=== PATIENT | female | born 1950 | race Caucasian/White ===

== ENCOUNTER 2016-11-07 13:20 | Inpatient (IN) | payer BC ==
[~2016-11-07 13:20] MED LIST: GLYCOPYRROLATE INJ 0.4 MG/2 ML VIAL ONE; ROCURONIUM BROMIDE INJ 50 MG/5 ML VIAL IV ONE; SUCCINYLCHOLINE CHLORIDE INJ 200 MG/10 ML VIAL ONE
[2016-11-07] MEDS ORDERED: ONDANSETRON HCL INJ/PF 4 MG/2 ML SDV IV ONE (14:03)
[2016-11-07] MEDS ORDERED: NORMAL SALINE 1000 ML 1,000 ML IV PRN ×2 (14:03→15:56)
[2016-11-07] MEDS ORDERED: MORPHINE SULFATE 10 MG/ML INJ IV ONE (14:04)
--- NOTE | 2016-11-07 14:06 | ER Document Report ---
ED Medical Screen (RME) - General Chief Complaint: Abdominal Pain Stated Complaint: ABDOMINAL PAIN Time Seen by Provider: 11/07/16 14:03 Mode of Arrival: Ambulatory Information source: Patient, [facility] Records TRAVEL OUTSIDE OF THE [place] IN LAST 30 DAYS: No - HPI Onset: Other - 4 days Onset/Duration: Gradual, Constant Quality of pain: Dull Associated Symptoms: Other - Decreased appetite Exacerbated by: Denies Similar symptoms previously: No Recently seen / treated by doctor: No - Related Data Smoking: Non-smoker Allergies/Adverse Reactions: meperidine [From Demerol] Allergy (Verified 11/07/16 13:46) Past Medical History - General Information source: Patient, [facility] Records - Social History Chew tobacco use (# tins/day): No Frequency of alcohol use: None Drug Abuse: None - Past Medical History Cardiac Medical History: Reports: Hx Hypertension Renal/ Medical History: Denies: Hx Peritoneal Dialysis Psychiatric Medical History: Reports: Hx Bipolar Disorder, Hx Depression Past Surgical History: Reports: Hx Cholecystectomy Review of Systems - Review of Systems Gastrointestinal: Abdominal pain -: Yes All other systems reviewed and negative Physical Exam - Vital signs Vitals: Temp Pulse Resp BP Pulse Ox 97.5 F 48 L 20 126/51 H 98 11/07/16 13:34 11/07/16 13:34 11/07/16 13:34 11/07/16 13:34 11/07/16 13:34 Interpretation: Normal - General General appearance: Appears well, Alert - HEENT Head: Normocephalic Mouth/Lips: Normal Pharynx: Normal Neck: Normal - Respiratory Respiratory status: No respiratory distress Chest status: Nontender Breath sounds: Normal Chest palpation: Normal - Cardiovascular Rhythm: Regular Heart sounds: Normal auscultation Murmur: No - Abdominal Inspection: Normal Distension: No distension Bowel sounds: Normal Tenderness: Tender - Right lower quadrant/right flank - Extremities General upper extremity: Normal inspection, Nontender, Normal color, Normal ROM , Normal temperature General lower extremity: Normal inspection, Nontender, Normal color, Normal ROM , Normal temperature, Normal weight bearing. No: Ivanna's sign - Neurological Neuro grossly intact: Yes Cognition: Normal Orientation: AAOx4 Yaima Coma Scale Eye Opening: Spontaneous [place] Coma Scale Verbal: Oriented [place] Coma Scale Motor: Obeys Commands Yaima Coma Scale Total: 15 Speech: Normal Motor strength normal: LUE, RUE, LLE, RLE Sensory: Normal - Skin Skin Temperature: Warm Skin Moisture: Dry Skin Color: Normal Course - Re-evaluation Re-evalutation: 11/07/16 15:49 CT consistent with acute appendicitis. Will contact surgery for admission. 11/07/16 15:[address] Shanks general surgery. He is aware of patient. I also have discussed workup with patient and she is aware that she has acute appendicitis and will need surgery. - Vital Signs Vital signs: Temp Pulse Resp BP Pulse Ox 97.5 F 48 L 20 126/51 H 98 11/07/16 13:34 11/07/16 13:34 11/07/16 13:34 11/07/16 13:34 11/07/16 13:34 - Laboratory Result Diagrams: 11/07/16 14:45 11/07/16 14:45 Laboratory results interpreted by me: 11/07/16 11/07/16 11/07/16 14:05 14:45 14:45 WBC 13.5 H Absolute Neutrophils 8.5 H Absolute Monocytes 1.7 H Sodium 134.9 L Chloride 91 L BUN 29 H Creatinine 1.97 H Est GFR ( Amer) 31 L Est GFR (Non-Af Amer) 26 L Direct Bilirubin 0.5 H Alkaline Phosphatase 138 H Urine Protein 30 H Urine Ketones TRACE H Urine Bilirubin SMALL H Urine Urobilinogen 2.0 H Ur Leukocyte Esterase LARGE H - Diagnostic Test Radiology reviewed: Reports reviewed Radiology results interpreted by me: 11/07/16 15:49 Per radiology: Right lower quadrant inflammatory changes consistent with acute appendicitis. - Transfer of Care Notes: 11/07/16 14:06 Patient will be evaluated by ED provider in the treatment area Doctor's Discharge - Discharge Clinical Impression: Acute appendicitis Condition: Fair Disposition: ADMITTED OBSERVATION
[2016-11-07 14:50] LABS: APPEARANCE,URINE CLOUDY; BILIRUBIN,URINE SMALL (NEGATIVE); GLUCOSE, URINE NEGATIVE (NEGATIVE); KETONES,URINE TRACE mg/dL (NEGATIVE); LEUKOCYTE ESTERASE,URINE LARGE (NEGATIVE); NITRITE,URINE NEGATIVE (NEGATIVE); PROTEIN,URINE 30 mg/dL (NEGATIVE); URINE SPECIFIC GRAVITY 1.025
[2016-11-07 14:53] LABS: ABSOLUTE BASOPHILS # (AUTO) 0.1 10^3/uL (0.0-0.2); ABSOLUTE EOSINOPHILS # (AUTO) 0.3 10^3/uL (0.0-0.6); ABSOLUTE LYMPHOCYTES (AUTO) 2.8 10^3/uL (0.5-4.7); ABSOLUTE MONOCYTES (AUTO) 1.7 10^3/uL (0.1-1.4); ABSOLUTE NEUT (AUTO) 8.5 10^3/uL (1.7-8.2); BASOPHILS % (AUTO) 0.4 % (0-2); EOSINOPHILS % (AUTO) 2.4 % (0-6); HEMATOCRIT 38.3 % (36.0-47.0); HEMOGLOBIN 12.8 g/dL (12.0-15.5); HGB HCT DIFFERENCE 0.1; LYMPHOCYTES % (AUTO) 20.7 % (13-45); MEAN CORPUSCULAR HEMOGLOBIN 31.1 pg (27.0-33.4); MEAN CORPUSCULAR HGB CONC 33.5 g/dL (32.0-36.0); MEAN CORPUSCULAR VOLUME 93 fl (80-97); MONOCYTES % (AUTO) 12.9 % (3-13); RED BLOOD COUNT 4.12 10^6/uL (3.72-5.28); SEGMENTED NEUTROPHILS % (AUTO) 63.6 % (42-78); WHITE BLOOD COUNT 13.5 10^3/uL (4.0-10.5)
[2016-11-07 15:11] LABS: ALANINE AMINOTRANSFERASE 25 U/L (9-52); ALBUMIN 3.7 g/dL (3.5-5.0); ALKALINE PHOSPHATASE 138 U/L (38-126); ANION GAP 14 (5-19); ASPARTATE AMINO TRANSFERASE 18 U/L (14-36); BILIRUBIN,DIRECT 0.5 mg/dL (0.0-0.4); BILIRUBIN,TOTAL 0.8 mg/dL (0.2-1.3); BLOOD UREA NITROGEN 29 mg/dL (7-20); CALCIUM 9.8 mg/dL (8.4-10.2); CARBON DIOXIDE 30 mmol/L (22-30); CHLORIDE 91 mmol/L (98-107); CREATININE RESULT 1.97 mg/dL (0.52-1.25); GLUCOSE 87 mg/dL (75-110); POTASSIUM 3.9 mmol/L (3.6-5.0); SODIUM 134.9 mmol/L (137-145); TOTAL PROTEIN 7.3 g/dL (6.3-8.2)
--- NOTE | 2016-11-07 15:15 | RADIOLOGY REPORT (SQ) ---
EXAM DESCRIPTION: CT ABD/PELVIS NO ORAL OR IV COMPLETED DATE/TIME: 11/07/2016 2:59 pm REASON FOR STUDY: kidney stone COMPARISON: None. TECHNIQUE: CT scan of the abdomen and pelvis performed without intravenous or oral contrast. Images reviewed with lung, soft tissue, and bone windows. Reconstructed coronal and sagittal MPR images revi ewed. All images stored on PACS. All CT scanners at this facility use dose modulation, iterative reconstruction, and/or weight based d osing when appropriate to reduce radiation dose to as low as reasonably achievable (ALARA). [facility]: Dose Right [facility]: CareDose [facility]: Dose Right [facility]: Teradose 4D [facility]: Smart Zuu Onlnine RADIATION DOSE: Up-to-date CT equipment and radiation dose reduction techniques were employed. CTDIv ol: 9.8 mGy. DLP: 524 mGy-cm.mGy. LIMITATIONS: None. FINDINGS: LOWER CHEST: No significant findings. No nodules or infiltrates. NON-CONTRASTED LIVER, SPLEEN, ADRENALS: Evaluation limited by lack of IV contrast. No identified sign ificant masses. PANCREAS: No masses. No peripancreatic inflammatory changes. GALLBLADDER: Surgically absent. RIGHT KIDNEY AND URETER: No suspicious masses. Assessment limited by lack of IV contrast. No signif icant calcifications. No hydronephrosis or hydroureter. LEFT KIDNEY AND URETER: No suspicious masses. Assessment limited by lack of IV contrast. No signifi cant calcifications. No hydronephrosis or hydroureter. AORTA AND RETROPERITONEUM: No aneurysm. No retroperitoneal masses or adenopathy. BOWEL AND PERITONEAL CAVITY: No obvious masses or inflammatory changes. No free fluid. APPENDIX: Poorly visualized. Prominent inflammatory change in the right lower quadrant at the tip of the cecum. No discrete focal fluid collection. There are a few prominent lymph nodes in the right lower quadrant. PELVIS, BLADDER, AND ABDOMINAL WALL:Calcified mass arising from the uterus consistent with a fibroid. No free fluid. Bladder normal. BONES: No significant findings. OTHER: No other significant finding. IMPRESSION: 1. PROMINENT INFLAMMATORY CHANGES IN THE RIGHT LOWER QUADRANT DESCRIBED. VERY DIFFICULT TO VISUAL IZE THE APPENDIX. FINDINGS ARE HIGHLY SUSPICIOUS FOR ACUTE APPENDICITIS. NO FOCAL DRAINABLE ABSCESS AT THIS TIME. 2. CALCIFIED UTERINE FIBROID. NO OTHER SIGNIFICANT OR ACUTE PROCESS IN THE ABDOMEN OR PELVIS. TECHNICAL DOCUMENTATION: JOB ID: [id number] Quality ID # [id number]: Final reports with documentation of one or more dose reduction techniques (e.g., Au tomated exposure control, adjustment of the mA and/or kV according to patient size, use of iterative reconstruction technique) 2010 [employer]- All Rights Reserved
[2016-11-07] MEDS ORDERED: AMPICILLIN SOD/SULBACTAM 3 GM VIAL IV ONE (15:55)
[2016-11-07] MEDS ORDERED: FENTANYL CITRATE INJ/PF 100 MCG/2 ML AMPUL ONE (17:29)
[2016-11-07] MEDS ORDERED: MIDAZOLAM 2 MG/2 ML INJ ONE (17:29)
[2016-11-07] MEDS ORDERED: DEXAMETHASONE SOD PHOSPHATE INJ 4 MG/1 ML VIAL ONE (17:29)
[2016-11-07] MEDS ORDERED: ONDANSETRON HCL INJ/PF 4 MG/2 ML SDV ONE (17:29)
--- NOTE | 2016-11-07 17:29 | PDOC H&P ---
History of Present Illness Admission Date/PCP: 11/07/16 16:07 Patient complains of: 4 day history of right lower quadrant pain, with associated anorexia. There is no history of nausea, vomiting, fever, chills, or change in bowel habits. There is no history of any urinary symptoms. On exam in the emergency room, patient was found to have mild right lower quadrant tenderness, and on CT scan there is findings suggestive of early appendicitis. Thus, surgical consultation is requested. History of Present Illness: DONNA FLORES is a 66 year old female Past Medical History Cardiac Medical History: Reports: Hypertension Psychiatric Medical History: Reports: Bipolar Disorder, Depression Past Surgical History Past Surgical History: Reports: Cholecystectomy Social History Smoking Status: Never Smoker Family History Parental Family History Reviewed: No Children Family History Reviewed: No Sibling(s) Family History Reviewed.: No Medication/Allergy Home Medications: Alprazolam [Xanax] 1 mg PO Q12HP PRN 11/07/16 Clonidine HCl [Catapres 0.2 mg Tablet] 0.2 mg PO Q12 11/07/16 Divalproex Sodium [Depakote] 500 mg PO Q12 11/07/16 Duloxetine HCl [Cymbalta] 60 mg PO DAILY 11/07/16 Metoprolol Tartrate [Lopressor 50 mg Tablet] 50 mg PO Q12 11/07/16 Triamterene/Hydrochlorothiazid [Triamterene-Hctz 37.5-25 mg Tb] 1 tab PO DAILY 11/07/16 Allergies/Adverse Reactions: meperidine [From Demerol] Allergy (Verified 11/07/16 13:46) Physical Exam Vital Signs: Temp Pulse Resp BP Pulse Ox 97.6 F 56 L 16 106/89 H 96 11/07/16 16:41 11/07/16 16:41 11/07/16 16:41 11/07/16 16:41 11/07/16 16:41 General appearance: PRESENT: no acute distress, cooperative, obese, well- developed, well-nourished Head exam: PRESENT: atraumatic, normocephalic Eye exam: PRESENT: conjunctiva pink, conjunctiva pale Mouth exam: PRESENT: moist, neck supple, tongue midline Respiratory exam: PRESENT: clear to auscultation leonardo, unlabored Cardiovascular exam: PRESENT: RRR GI/Abdominal exam: PRESENT: normal bowel sounds, soft, tenderness - Mild tenderness in right lower quadrant.. ABSENT: distended, guarding, organolmegaly , rebound Rectal exam: PRESENT: deferred Neurological exam: PRESENT: alert Results Impressions: Abdomen/Pelvis CT 11/07/16 14:03 IMPRESSION: 1. PROMINENT INFLAMMATORY CHANGES IN THE RIGHT LOWER QUADRANT DESCRIBED. VERY DIFFICULT TO VISUALIZE THE APPENDIX. FINDINGS ARE HIGHLY SUSPICIOUS FOR ACUTE APPENDICITIS. NO FOCAL DRAINABLE ABSCESS AT THIS TIME. 2. CALCIFIED UTERINE FIBROID. NO OTHER SIGNIFICANT OR ACUTE PROCESS IN THE ABDOMEN OR PELVIS. Assessment & Plan - Plan Summary Plan Summary: Patient will be taken to the operating room immediately, for laparoscopic appendectomy.
[2016-11-07] MEDS ORDERED: PROPOFOL INJ 200 MG/20 ML VIAL IV ONE (17:30)
[2016-11-07] MEDS ORDERED: MORPHINE SULFATE 10 MG/ML INJ ONE (17:30)
[2016-11-07] MEDS ORDERED: BUPIVACAINE HCL 0.5 % INJ/PF 30 ML SDV ONE (17:31)
[2016-11-07] MEDS ORDERED: ONDANSETRON HCL INJ/PF 4 MG/2 ML SDV IV PRN (19:12)
[2016-11-07] MEDS ORDERED: PROMETHAZINE HCL INJ 25 MG/1 ML VIAL IV PRN ×2 (19:12)
[2016-11-07] MEDS ORDERED: FENTANYL CITRATE INJ/PF 100 MCG/2 ML AMPUL IV PRN ×3 (19:12)
[2016-11-07] MEDS ORDERED: DIPHENHYDRAMINE HCL 50 MG/ML VIAL IV PRN (19:12)
[2016-11-07] MEDS ORDERED: MORPHINE SULFATE 10 MG/ML INJ IV PRN (19:12)
--- NOTE | 2016-11-07 19:13 | EKG REPORT ---
SEVERITY:- ABNORMAL ECG - SINUS RHYTHM LEFT VENTRICULAR HYPERTROPHY : Confirmed by: Zackary Mayes MD 07-Nov-2016 19:13:09
[2016-11-07] MEDS ORDERED: HYDROMORPHONE HCL INJ/PF 2 MG/ML AMPULE IV PRN (21:07)
--- NOTE | 2016-11-07 21:32 | Operative Report ---
Operative Report DATE OF SURGERY: 11/07/16 PREOPERATIVE DIAGNOSIS: Acute appendicitis POSTOPERATIVE DIAGNOSIS: Perforated acute appendicitis with phlegmon formation. OPERATION: Attempted laparoscopic appendectomy, with open conversion and resection of distal ileum and cecum, with ilio-ascending colon anastomosis. SURGEON: RUBEN SINGLETON ASSISTANT QUALITY MANAGER: Carmita ANESTHESIA: GA TISSUE REMOVED OR ALTERED: Distal ileum, appendix, and cecal phlegmon COMPLICATIONS: None ESTIMATED BLOOD LOSS: 50cc INTRAOPERATIVE FINDINGS: Perforated appendix with phlegmon formation, involving the cecum, appendix, and ascending colon. PROCEDURE: The patient was brought to the operating suite and placed in the supine position on the operating table. Monitoring device was attached, IV sedation was administered, followed by the induction of general endotracheal anesthesia. The patient's abdomen was then prepped and draped in usual sterile manner and timeout was achieved. After all concurred, Marcaine was injected just below the umbilicus. A curvilinear incision was made just below the umbilicus and carried through skin and subcutaneous tissue down to the linea alba.. 2-0 Vicryl stay sutures were then placed in the linea alba, and an incision was made between the 2 stay sutures. We then grasped the peritoneum and an incision was made between the 2 clamps grasping the peritoneum. We entered the abdominal cavity, and performed digital exploration to assure that there were no viscera adherent to the anterior abdominal wall. We then inserted our Trocar and Secured It with a 2-0 Vicryl Stay Sutures. The Abdomen Was Insufflated with CO2 and Then the Laparoscopic Camera and Light Source Were Inserted into the Abdominal Cavity. We Noted the Phlegmon in the Pelvis, and decided to abandon the laparoscopic approach, and proceeded to open conversion. We then removed all trochars from the abdominal wall and decompressed the abdomen. A transverse incision was made at McBurney's point, and carried through skin and subcutaneous tissue down to the external oblique fascia. We then divided the internal oblique fascia, the transversalis fascia and muscle, the peritoneum, and the abdominal cavity was entered. We noted the phlegmon around the cecum and appendix. We mobilized the distal ileum and the right colon so that the phlegmon could be somewhat eviscerated. After determining that the appendix could not be fully visualized, given the extent of the phlegmon, we decided to do a resection of the distal ileum and cecum. We made an opening in the mesenteric border of the ileum and the ascending colon respectively, and divided each with a GI We then divided the mesentery using the LigaSure device. After completing our dissection, we lined up the ileum with the ascending colon, using 3-0 silk. We then made an opening at each staple line, and inserted the MANDO, which was fired to create a [id number] anastomosis. After removing the MANDO, the opening was closed using a TA 60, and the staple line, was oversewn using 3-0 silk continuous suture. We then irrigated the abdominal cavity, and submerge the anastomosis under saline irrigation to assure integrity. After checking for adequate hemostasis, the removed all laps, and proceeded to close the abdomen. The peritoneum and transversalis fascia were approximated using 0 Vicryl. The internal and external oblique fascia was approximated using the same, the subcutaneous tissue was approximated using 2-0 Vicryl, and the skin was approximated using skin naomi. The infraumbilical incision was closed using 0 Vicryl on a UR 6 needle, and the skin was approximated using naomi for the remaining incisions. The patient tolerated the procedure well, sponge and instrument count was correct, and the patient was transferred to the PACU in stable condition.
[2016-11-07] MEDS ORDERED: NALOXONE HCL INJ/PF 0.4 MG/1 ML SDV ONE (22:30)
[2016-11-08] MEDS ORDERED: METRONIDAZOLE 500 MG/NS RTU 100 ML IV SCH
[2016-11-08] MEDS: LEVOFLOXACIN 500 MG/D5W RTU 500 MG/100 ML RTUPB IV SCH ×2 (00:16→21:29)
[2016-11-08] MEDS: NORMAL SALINE 1000 ML 1,000 ML IV PRN ×3 (00:17→20:09)
[2016-11-08] MEDS: HYDROCODONE/ACETAMINOPHEN 5-325 MG TABLET PO PRN ×4 (02:09→21:31)
[2016-11-08] MEDS: METRONIDAZOLE 500 MG/NS RTU 100 ML IV SCH ×3 (08:48→20:13)
[2016-11-08] MEDS: ONDANSETRON HCL INJ/PF 4 MG/2 ML SDV IV PRN ×2 (11:47→18:05)
[2016-11-08] MEDS ORDERED: ALPRAZOLAM 0.5 MG TABLET PO PRN (16:31)
[2016-11-08] MEDS: CLONIDINE HCL 0.2 MG TABLET PO SCH (17:50)
[2016-11-08] MEDS: DIVALPROEX SODIUM 250 MG TABLET.DR PO SCH (21:30)
[2016-11-08] MEDS: METOPROLOL TARTRATE 50 MG TABLET PO SCH (21:30)
[2016-11-08] MEDS ORDERED: (PENDING PHARMACY ID) (Divalproex Sodium [Depakote] 500 MG) PO SCH (22:00)
[2016-11-08] MEDS ORDERED: CLONIDINE HCL 0.2 MG TABLET PO SCH (22:00)
--- NOTE | 2016-11-08 22:09 | PDOC PROGRESS REPORT ---
Subjective Progress Note for:: 11/08/16 Subjective:: Patient is without complaints. Physical Exam Vital Signs: Temp Pulse Resp BP Pulse Ox 98.7 F 70 20 147/52 H 95 11/08/16 20:14 11/08/16 20:14 11/08/16 20:14 11/08/16 20:14 11/08/16 20:14 Intake & Output 11/07/16 11/08/16 11/09/16 06:59 06:59 06:59 Intake Total 1490 2759 Output Total 425 650 Balance 1065 2109 General appearance: PRESENT: no acute distress GI/Abdominal exam: PRESENT: normal bowel sounds, soft, tenderness - Mild incisional tenderness. ABSENT: guarding Results Impressions: Abdomen/Pelvis CT 11/07/16 14:03 IMPRESSION: 1. PROMINENT INFLAMMATORY CHANGES IN THE RIGHT LOWER QUADRANT DESCRIBED. VERY DIFFICULT TO VISUALIZE THE APPENDIX. FINDINGS ARE HIGHLY SUSPICIOUS FOR ACUTE APPENDICITIS. NO FOCAL DRAINABLE ABSCESS AT THIS TIME. 2. CALCIFIED UTERINE FIBROID. NO OTHER SIGNIFICANT OR ACUTE PROCESS IN THE ABDOMEN OR PELVIS. Assessment & Plan - Plan Summary Plan Summary: Discharge planning over the next 24-48 hours
[2016-11-09] MEDS: METRONIDAZOLE 500 MG/NS RTU 100 ML IV SCH (02:18)
[2016-11-09] MEDS: HYDROCODONE/ACETAMINOPHEN 5-325 MG TABLET PO PRN ×4 (05:03→23:19)
[2016-11-09] MEDS: ONDANSETRON HCL INJ/PF 4 MG/2 ML SDV IV PRN (05:03)
[2016-11-09] MEDS: CLONIDINE HCL 0.2 MG TABLET PO SCH ×2 (05:03→18:01)
--- NOTE | 2016-11-09 09:07 | PDOC PROGRESS REPORT ---
Subjective Progress Note for:: 11/09/16 Subjective:: Feels well. Passing gas. Tolerating liquids. Ambulating Physical Exam Vital Signs: Temp Pulse Resp BP Pulse Ox 98.3 F 64 20 175/76 H 99 11/09/16 04:30 11/09/16 07:00 11/09/16 04:30 11/09/16 04:30 11/09/16 04:30 Intake & Output 11/08/16 11/09/16 11/10/16 06:59 06:59 06:59 Intake Total 1490 4409 Output Total 425 1450 Balance 1065 2959 Weight 88.5 kg General appearance: PRESENT: no acute distress, cooperative Respiratory exam: PRESENT: clear to auscultation leonardo Cardiovascular exam: PRESENT: RRR GI/Abdominal exam: PRESENT: other - Soft, nondistended, very mild tenderness to palpation. Clean dry and intact. Extremities exam: PRESENT: other - No swelling. Results Impressions: Abdomen/Pelvis CT 11/07/16 14:03 IMPRESSION: 1. PROMINENT INFLAMMATORY CHANGES IN THE RIGHT LOWER QUADRANT DESCRIBED. VERY DIFFICULT TO VISUALIZE THE APPENDIX. FINDINGS ARE HIGHLY SUSPICIOUS FOR ACUTE APPENDICITIS. NO FOCAL DRAINABLE ABSCESS AT THIS TIME. 2. CALCIFIED UTERINE FIBROID. NO OTHER SIGNIFICANT OR ACUTE PROCESS IN THE ABDOMEN OR PELVIS. Assessment & Plan - Diagnosis (1) Acute appendicitis Is this a current diagnosis for this admission?: YesPlan: s/p cecectomy. doing well advance diet
[2016-11-09] MEDS ORDERED: ONDANSETRON HCL INJ/PF 4 MG/2 ML SDV IV PRN (09:14)
[2016-11-09] MEDS: DIVALPROEX SODIUM 250 MG TABLET.DR PO SCH ×2 (10:03→21:45)
[2016-11-09] MEDS: TRIAMTERENE/HYDROCHLOROTHIAZIDE 37.5-25 MG TABLET PO SCH (10:04)
[2016-11-09] MEDS: METOPROLOL TARTRATE 50 MG TABLET PO SCH ×2 (10:04→21:44)
[2016-11-09] MEDS: DULOXETINE HCL 30 MG CAPSULE.DR PO SCH (10:04)
[2016-11-09] MEDS: METRONIDAZOLE 500 MG TABLET PO SCH ×3 (15:38→23:15)
[2016-11-09] MEDS ORDERED: LEVOFLOXACIN 500 MG TABLET PO SCH (22:00)
[2016-11-10] MEDS: METRONIDAZOLE 500 MG TABLET PO SCH (05:53)
[2016-11-10] MEDS: CLONIDINE HCL 0.2 MG TABLET PO SCH (05:53)
[2016-11-10] MEDS: TRIAMTERENE/HYDROCHLOROTHIAZIDE 37.5-25 MG TABLET PO SCH (09:19)
[2016-11-10] MEDS: METOPROLOL TARTRATE 50 MG TABLET PO SCH (09:19)
[2016-11-10] MEDS: DULOXETINE HCL 30 MG CAPSULE.DR PO SCH (09:20)
[2016-11-10] MEDS: DIVALPROEX SODIUM 250 MG TABLET.DR PO SCH (09:20)
[2016-11-10] MEDS: HYDROCODONE/ACETAMINOPHEN 5-325 MG TABLET PO PRN (09:23)
--- NOTE | 2016-11-10 12:33 | PROGRESS NOTE E ---
Progress Note NAME: DONNA FLORES : 1950 AGE: 66Y DATE: 11/10/2016 ROOM: 306 SUBJECTIVE: This is her third postop day. She had an ileocolostomy for acute appendicitis. She just had a bowel movement. She is afebrile and her white count is to be checked. She tolerated a soft diet this morning. PLAN: The plan is observe her today, and if her pain is controlled with p.o. pain medication and she continues to tolerate a soft diet, then she may be able to be discharged today, at the latest tomorrow morning. DICTATING PHYSICIAN: SCOTT NAVA M.D. [id number] PHY#: [id number] ID: [id number] JOB#: [id number] ACCT: [id number] cc: >
[2016-11-10 16:48] VITALS: BP 150/61
--- NOTE | 2016-11-13 01:14 | DISCHARGE SUMMARY E ---
Discharge Summary NAME: DONNA FLORES : 1950 AGE: 66Y ADMITTED: 11/09/2016 DISCHARGED: 11/10/2016 DATE OF OPERATION: 11/07/2016 PROCEDURE DONE: Resection of distal ileum and cecum with ileal ascending colon anastomosis for acute appendicitis with phlegmon formation. FINAL DIAGNOSIS: Perforated acute appendicitis with phlegmon formation. HOSPITAL COURSE: The patient postoperatively is able to tolerate clear liquids on the second postop day. On the third postop day, on the day of discharge, she was tolerating a soft diet. She also had 2 bowel movements on the day of discharge. Her abdomen is soft and nontender, and the incision and clean and dry. DISCHARGE INSTRUCTIONS: She will be discharged on p.o. Levaquin 500 mg daily for the next 5 days and Percocet 5/325 mg 1 every 6 hours p.r.n. for pain x15. The patient is scheduled to be [facility] Sunday, the 17 of November. DICTATING PHYSICIAN: SCOTT NAVA M.D. [id number] PHY#: [id number] ID: [id number] JOB#: [id number] ACCT: [id number] cc:RUBEN CORONEL M.D., FAUSTINO M.D. Cross, William D.O. >
== END 2016-11-10 17:00 | disposition home or self-care (01) | DRG 331 ==
LOC: ER 13:20 → EH 16:07 → UNDOADMOB 16:07 → EH 23:15 → 3N 23:15 → EH 23:39 → OBSVTOIN 11-09 13:55
PROVIDERS: ATTEND Surgery
PROC: 0DJD4ZZ Inspection of Lower Intestinal Tract, Percutaneous Endoscopic Approach (ICD-10-PCS; 2016-11-07)
PROC: 0DTH0ZZ Resection of Cecum, Open Approach (ICD-10-PCS; principal; 2016-11-07 18:00)
DX: K35.3 Acute appendicitis with localized peritonitis (principal); Z53.31 Laparoscopic surgical procedure converted to open procedure; I10 Essential (primary) hypertension; F31.9 Bipolar disorder, unspecified; Z79.899 Other long term (current) drug therapy; Z90.49 Acquired absence of other specified parts of digestive tract; Z88.8 Allergy status to other drugs, medicaments and biological substances
CPT/HCPCS: 36415; 74176; 80053; 81001; 83605; 840; 85025; 88307; 93005; 93010; 96374; 96375; 99285; G0378; J0295; J0330; J1100; J1956; J2250; J2270; J2310; J2405; J2704; J3010; J3490; J7030